=== PATIENT | female | born 1970 | race Caucasian/White ===

== ENCOUNTER → 2017-08-23 | Outpatient (CLI) | payer OTHER ==
[~2017-08-23] MED LIST: ACET-1256 PO; [UNRECOGNIZED DRUG - OTHER] PO
== END | disposition home or self-care (01) ==
LOC: C.PAPS 15:36
PROVIDERS: ATTEND Obstetrics & Gynecology
DX: Z01.419 Encounter for gynecological examination (general) (routine) without abnormal findings (principal)

== ENCOUNTER → 2017-08-29 | Outpatient (CLI) | payer OTHER ==
--- NOTE | 2017-08-29 15:02 | Discharge Instructions ---
Discharge Instructions Procedure Procedure Date: Aug 29, 2017. Reason for visit: Left Mass. Discharge Discharge Date: Aug 29, 2017. Discharge Diagnosis: status post breast biopsy Instructions Activity Recommendations: Additional Limitations (see below) Return to School/Work: no limitations Recommended Home Diet: No Limitations Provider Instructions: ACTIVITY RECOMMENDATIONS: * No lifting, pushing, pulling or exercising the affected side for three days. RETURN TO SCHOOL/WORK: * You may return to work/school after the procedure, but do not perform any strenuous activities for 24 to 48 hours. MEDICATIONS: * Tylenol (two 325 mg) every four to six hours if needed for mild pain (if not allergic to Tylenol). DIET: * Resume previous diet. SPECIAL CARE INSTRUCTIONS: * Keep biopsy site dry for 24 hours. May shower after 24 hours, but do not soak (bathe) incision. * May remove Tegaderm (plastic patch) tomorrow AFTER showering. * Leave the steri-strips on for one week. Allow the steri-strips to fall off by themselves. If not off after one week, you may remove them. You may place a Bandaid crosswise over the strips, if desired. * Apply ice 10 minutes on and 10 minutes off as needed. * Wear a bra at bedtime to sleep more comfortably for 2-3 days. * Your referring physician should have the results after approximately 5 to 7 business days. * Call for unusual bleeding, fever, drainage, etc or if you have any questions call during normal business hours or after hours call Dr Wilkins, . FOLLOW UP VISIT: Follow-up with Referring Physician as scheduled. Allergies Coded Allergies: No Known Allergies (Verified , 07/27/15) [place] Ha Recommendations: Call your doctor if: * Temperature above 101 degrees * Pain not relieved by pain medicine ordered * There is increased drainage or redness from any incision * You have any unanswered questions or concerns. Your Doctors Instructions noted above were prepared by provider Ranjana Wilkins. Patient Signature Section: Patient Instructions Signature Page Carissa Santos Patient (or Guardian) Signature/Date: I have read and understand the instructions given to me by my caregivers. Caregiver/RN/Doctor Signature/Date: The above-named patient and/or guardian has received patient instructions on this date. + Original Patient Signature Page (only) stays with chart. Please make copy for patient.
--- NOTE | 2017-08-29 15:38 | MAMMOGRAPHY REPORT ---
ULTRASOUND GUIDED BIOPSY LEFT BREAST: 08/29/2017 CLINICAL HISTORY: Left 6:00 breast mass. PATIENT CONSENT: The procedure, risks and benefits were discussed with the patient and informed writt en consent was obtained. A timeout was performed immediately prior to the procedure. PROCEDURE DESCRIPTION: With ultrasound guidance, aseptic technique, and lidocaine as the local anesth etic (1% lidocaine to anesthetize the skin and 1% lidocaine with epinephrine to anesthetize the deepe r tissues), the mass of concern in the left 6:00 breast was sampled 4 times with a 14-gauge Achieve b iopsy needle. Immediately thereafter, with ultrasound guidance, aseptic technique, and lidocaine as the local anesthetic, a metallic localizer clip was placed at the biopsy site. Direct pressure was a pplied to the site immediately post procedure and hemostasis was achieved. Postprocedure unilateral mammograms were performed to confirm clip placement. The patient tolerated the procedure without com plication. She was given wound care instructions. The specimens were sent to pathology for analysis. COMPARISON: Comparison is made to exams dated: 08/29/2017 ultrasound, 08/29/2017 mammogram, 02/25/2016 mammogram, 12/19/2013 ultrasound, 12/19/2013 mammogram, and 04/18/2013 ultrasound - [facility]. IMPRESSION: ULTRASOUND GUIDED BIOPSY Ultrasound-guided core needle biopsy of the left 6:00 breast mass, with clip placement. The patient will receive pathology results from her referring provider. Ranjana Wilkins M.D. /:08/29/2017 15:03:54 Certified Prosthetist Vice President: Bibiana Chambers, [facility]
--- NOTE | 2017-08-29 15:42 | MAMMOGRAPHY REPORT ---
BILATERAL DIGITAL DIAGNOSTIC MAMMOGRAM TOMOSYNTHESIS WITH CAD AND TARGETED LEFT ULTRASOUND: 08/29/2017 CLINICAL HISTORY: 46-year-old woman presents with an area of discomfort in the left upper outer quadr ant which she has noticed throughout the past year. No definite palpable mass, skin erythema or nipp le discharge. On recent clinical breast exam, her provider felt a lump in the 12:00 axis. TECHNIQUE: Bilateral breast tomosynthesis in addition to standard 2D mammography was performed. Curre nt study was also evaluated with a Computer Aided Detection (CAD) system. COMPARISON: Comparison is made to exams dated: 02/25/2016 mammogram, 12/19/2013 ultrasound, 12/19/2013 mammogram, 04/18/2013 ultrasound, 04/18/2013 mammogram, and 09/03/2012 mammogram - [facility]. BREAST COMPOSITION: The tissue of both breasts is heterogeneously dense, which may obscure small mas ses. FINDINGS: A triangular palpable marker overlies the 12:00 anterior left breast, and a square-shaped p ain marker overlies the upper outer posterior left breast, denoting the areas of concern noted by the patient's provider and the patient. Overall the glandular pattern is similar to prior mammograms, a lthough there is a conspicuous 12 mm nodular asymmetry in the far posterior left breast near the retr oglandular fat, along the posterior nipple line on the CC view that may project superiorly based on [facility] MLO tomosynthesis images (slice 41/62). Focused ultrasound was performed along the sagittal plane of the nipple from the 12:00, retroareolar through 6:00 axes to assess for this mammographic asymmet ry. No other suspicious masses, new suspicious microcalcifications, focal areas of architectural dis tortion or other abnormalities are identified mammographically. Targeted ultrasound was performed in the left breast. Particular attention was paid to areas of disc omfort with sonography described by the patient, the 12:00, retroareolar and 6:00 axes of the left br east. Numerous scattered anechoic benign cysts are identified. In particular, an anechoic cyst in t he 1:00 left breast, 4 cm from the nipple, measures 5.2 x 3.5 x 4.6 mm. There is a larger lobulated cyst versus 2 abutting cysts with evidence of posterior acoustic enhancement, in the 12:00 axis, 2 cm from the nipple, measuring approximately 5.9 x 6.7 x 7.7 mm. This could correlate with the mammogra phic asymmetry in the 12:00 axis. There is a microcyst cluster in the 7:00 periareolar left breast m easuring 11.8 x 4.1 x 15.1 mm. In the 5:30 to 6:00 left breast, 1 cm from the nipple, there is a lob ulated and circumscribed isoechoic solid appearing mass, possibly intraductal as seen in the radial p jacob, which measures 4.7 x 3.3 x 5.1 mm. Another oval parallel circumscribed anechoic simple cyst is identified in the 5:00 left breast, 2 cm from the nipple, measuring 12.7 x 5.0 x 9.7 mm. Note is ma de of benign duct ectasia in the retroareolar left breast. Another circumscribed oval anechoic cyst is seen in the 2:00 left breast, 2 cm from the nipple, measuring 8.3 x 4.9 x 8.9 mm. A morphological ly normal lymph node was incidentally identified in the left axilla on ultrasound, with a thin cortex measuring 2.3 mm. The patient reported pain while scanning in the 1:00 left breast, 8 cm from the n ipple, both in the supine and seated position although no discrete abnormality is seen in this area. IMPRESSION: ACR BI-RADS CATEGORY 4: SUSPICIOUS, TARGETED ULTRASOUND ACR BI-RADS CATEGORY 4: SUSPICIO US 1. There is no new suspicious mammographic or targeted sonographic abnormality in the 1:[address], 8 cm from the nipple in an area of pain with sonography described by the patient. She did report a few other areas of pain in the left upper outer quadrant which could correlate with cysts identifi ed on ultrasound, which may partially explain the patient's abnormal sensation. Continued clinical f ollow-up is recommended. 2. No definite mammographic or targeted sonographic abnormality in the 10:00 left breast in the area of mass identified by the patient's provider. However, clinical follow-up is recommended as biopsy of a clinically suspicious mass should not be precluded by negative imaging. 3. A mammographic focal asymmetry in the far posterior 12:00 left breast that is increasingly conspi cuous comparing to prior mammograms is thought to correspond with a benign 7.7 mm cyst identified in the 12:00 axis, 2 cm from the nipple and 2-1/2 cm deep to the dermis on targeted ultrasound. 4. Incidentally identified is an isoechoic solid, possible intraductal 4.7 mm mass in the 5:30 to 6: 00 left breast, 1 cm from the nipple, for which ultrasound-guided core needle biopsy is recommended f or definitive characterization. 5. Pending benign pathology results, would recommend follow-up left diagnostic tomosynthesis mammogr ams and possible ultrasound to ensure stability of the mammographic asymmetry described above, though t to correlate with the benign cyst identified in the 12:00 left breast on ultrasound. 6. Stable mammographic appearance of the right breast, without mammographic evidence of malignancy. Recommend routine screening tomosynthesis mammography of the right breast in one year. These results and recommendations were discussed with the patient at the time of the exam. She tenta tively scheduled the biopsy appointment for later the same day. Approximately 10% of breast cancers are not detected with mammography. A negative mammographic report should not delay biopsy if a clinically suggestive mass is present. Swetha Roque M.D. ay/:08/29/2017 12:04:12 Chief Deputy Clerk/Bailiff: Bibiana MORENO(Kiara)(M), [facility] letter sent: Abnormal 4/5 BI-RADS Code: ACR BI-RADS Category 4: Suspicious Ultrasound BI-RADS: ACR BI-RADS Category 4: Suspici ous
--- NOTE | 2017-08-29 15:42 | MAMMOGRAPHY REPORT ---
UNILATERAL LEFT DIGITAL DIAGNOSTIC MAMMOGRAM TOMOSYNTHESIS: 08/29/2017 CLINICAL HISTORY: Status post left breast biopsy. TECHNIQUE: Breast tomosynthesis in addition to standard 2D mammography was performed. Postprocedura l left CC and ML tomosynthesis images including C views were obtained. COMPARISON: Comparison is made to exams dated: 08/29/2017 ultrasound, 08/29/2017 mammogram, 02/25/2016 mammogram, 12/19/2013 ultrasound, 12/19/2013 mammogram, and 04/18/2013 ultrasound - [facility]. BREAST COMPOSITION: The tissue of the left breast is heterogeneously dense, which may obscure small masses. FINDINGS: A new ribbon-shaped biopsy marker clip is seen within the left breast status post ultrasou nd guided biopsy of the left 6:00 breast mass. No significant postbiopsy hematoma is seen. IMPRESSION: POST PROCEDURE IMAGING FOR MARKER PLACEMENT New biopsy marker clip status post left breast biopsy. Pathology results are pending. Approximately 10% of breast cancers are not detected with mammography. A negative mammographic report should not delay biopsy if a clinically suggestive mass is present. Ranjana Wilkins M.D. /:08/29/2017 15:11:20 International Sales Representative: Bibiana Chambers, [facility] BI-RADS Code: Post Procedure Imaging For Marker Placement
== END | disposition home or self-care (01) ==
LOC: C.MAMM 07:51
PROVIDERS: ATTEND Obstetrics & Gynecology
DX: N63.20 Unspecified lump in the left breast, unspecified quadrant (principal); N64.9 Disorder of breast, unspecified; N60.12 Diffuse cystic mastopathy of left breast; N60.82 Other benign mammary dysplasias of left breast

== ENCOUNTER → 2018-03-20 | Outpatient (CLI) | payer OTHER ==
--- NOTE | 2018-03-20 13:53 | MAMMOGRAPHY REPORT ---
UNILATERAL LEFT DIGITAL DIAGNOSTIC MAMMOGRAM TOMOSYNTHESIS WITH CAD AND LEFT ULTRASOUND: 03/20/2018 CLINICAL HISTORY: 47-year-old woman presents for follow-up of the left breast, for an asymmetry in th e posterior breast along the posterior nipple line on the CC view. 6 months ago, and ultrasound-guide d core biopsy was performed for an indeterminate solid-appearing mass in the 6:00 left breast which y ielded benign pathology results. TECHNIQUE: Left breast CC and MLO 2D and tomosynthesis images were obtained. Current study was also evaluated with a Computer Aided Detection (CAD) system. COMPARISON: Comparison is made to exams dated: 08/29/2017 mammogram, 08/29/2017 mammogram, 02/25/2016 m ammogram, 08/29/2017 ultrasound biopsy, 08/29/2017 ultrasound, and 12/19/2013 mammogram - [facility]. BREAST COMPOSITION: The tissue of left breast is heterogeneously dense, which may obscure small mira s. FINDINGS: The asymmetry in the posterior left breast along the posterior nipple line is slightly less prominent comparing to the 08/29/2017 mammograms. Currently in the posterior left breast along the p osterior nipple line on the CC view, there is a partially circumscribed and obscured 11 mm mass, like ly corresponding to the cyst seen on prior targeted ultrasound. No other obvious new mass, asymmetry , area of architectural distortion or suspicious calcifications are seen in the left breast. There i s a stable ribbon-shaped biopsy marker clip in the 6:00 anterior left breast. Targeted ultrasound was performed in the 12:00 left breast. A lobulated anechoic simple cyst without evidence of internal vascularity is again noted in the 12:00 left breast, 2 cm from the nipple. The re is posterior acoustic enhancement and this cyst measures 9.5 x 5.1 x 6.6 mm. This explains the pa rtially circumscribed and obscured mammographic mass and is benign. No further close follow-up is ne eded at this time. Incidental note is made of another anechoic benign cyst in the 12:00 left breast, 3 cm from the nipple, measuring 4 mm. IMPRESSION: ACR BI-RADS CATEGORY 2: BENIGN, ULTRASOUND ACR BI-RADS CATEGORY 2: BENIGN 1. Less prominent mammographic asymmetry with evidence of a partially circumscribed and obscured 11 mm mass in the area of previous asymmetry, which correlates with a benign cyst in the left 12:00 axis , 2 cm from the nipple on targeted ultrasound. There are a few other scattered cysts noted in the le ft breast on ultrasound, consistent with benign fibrocystic change. No further close follow-up is ne eded at this time. 2. Recommend return to annual screening mammography schedule, due in August 2018. These results and recommendations were discussed with the patient at the time of the exam. Some breast cancers are not detected with mammography. A negative mammographic report should not savanna y biopsy if a clinically suggestive mass is present. Swetha Roque M.D. ay/:03/20/2018 09:30:52 Painter Chassis: Bibiana Chambers, [facility]; Swetha Roque [facility] letter sent: Normal 1/2 OVERALL STUDY BIRADS: 2 Benign
== END | disposition home or self-care (01) ==
LOC: C.MAMM 08:47
PROVIDERS: ATTEND Obstetrics & Gynecology
DX: R92.8 Other abnormal and inconclusive findings on diagnostic imaging of breast (principal)